=== PATIENT | female | born 1990 | race Caucasian/White ===

== ENCOUNTER 2017-12-31 13:55 | Emergency (ER) | payer OTHER, BC ==
[~2017-12-31] VITALS: Ht 167.6 cm; Wt 99.8 kg
[~2017-12-31 13:55] MED LIST: AMOXICILLIN500 M2 PO; ANTIVERT/2525 MG PO; AUGMENTIN 875875 MG PO; BACTRIM DS 8001 TA1 PO; BENTYL10 MG PO; CETIRIZINE10 MG PO; CIPRODEX 0.3%-7.5 ML OT; CIPROFLOXACIN500 MG PO; CLARITIN10 MG PO; DIFLUCAN150 MG PO; EPIPEN 2-PAK1 MG/ML MR; FLAGYL250 MG PO; FLEXERIL5 MG PO; FLONASE0.05 MG/AC NS; HYDRODIURIL25 MG PO; KEFTAB500 MG PO; LOMOTIL 0.025 M1 TA1 PO; MEDROL DOSEPAK4 MG PO; METFORMIN500 MG PO; MOTRIN800 MG PO; NEURONTIN600 MG PO; NKHM; NO DAILY MEDS; NORCO 5-325 TA1 EACH PO; NORFLEX100 MG PO; PROVENTIL0.09 MG/AC IH; PYRIDIUM200 MG PO; SYNTHROID0.075 MG PO; SYNTHROID300 MCG PO; TOPIRAMATE100 M1 PO; VENTOLIN H0.09 MG/AC INH; VERAPAMIL HCL80 MG PO; VICODIN ES 7501 TAB PO; VISTARIL50 MG PO; VITAMIN B121000 MC1 PO; VITAMIN D32000 UNIT PO; ZITHROMAX Z PA250 MG PO; ZITHROMAX250 MG PO; ZOFRAN ODT4 MG SL; ZYRTEC10 M2 PO; [UNRECOGNIZED DRUG - MIXTURE] PO
[2017-12-31] MEDS ORDERED: CYCLOBENZAPRINE5 M3 PO ×2 (16:22→16:44)
[2017-12-31] MEDS ORDERED: Motrin,Rufen800 MG PO (16:22)
== END 2017-12-31 16:38 | disposition home or self-care (01) ==
LOC: ED 13:55
DX: S16.1XXA Strain of muscle, fascia and tendon at neck level, initial encounter (principal); S80.02XA Contusion of left knee, initial encounter; S09.90XA Unspecified injury of head, initial encounter; Z79.899 Other long term (current) drug therapy; Z91.040 Latex allergy status; Z88.8 Allergy status to other drugs, medicaments and biological substances; V49.88XA Car occupant (driver) (passenger) injured in other specified transport accidents, initial encounter; Y93.89 Activity, other specified; Y92.413 State road as the place of occurrence of the external cause; Y99.9 Unspecified external cause status

== ENCOUNTER 2018-03-11 11:20 | Emergency (ER) | payer BC ==
[~2018-03-11] VITALS: Ht 170.1 cm; Wt 99.8 kg
[~2018-03-11 11:20] MED LIST changes: +CYCLOBENZAPRINE5 M3 PO; +Motrin,Rufen800 MG PO
[2018-03-11 11:43] LABS: BILIRUBIN NEGATIVE (NEGATIVE); BLOOD NEGATIVE (NEGATIVE); CLARITY CLOUDY (CLEAR); COLOR YELLOW (YELLOW); GLUCOSE NEGATIVE (NEGATIVE); KETONE NEGATIVE (NEGATIVE); LEUKO ESTERASE NEGATIVE (NEGATIVE); NITRITE NEGATIVE (NEGATIVE); PH 7.5 (5.0-9.0)
[2018-03-11 11:44] LABS: BASO % 0.5 % (0.0-1.0); EOS # 0.3 10*3/uL (0.0-0.4); EOS % 4.6 % (1.0-4.0); HEMATOCRIT 39.7 % (37.0-47.0); HEMOGLOBIN 13.6 g/dl (12.0-16.0); LYMPH # 1.7 10*3/uL (1.3-4.4); LYMPH % 26.5 % (27.0-41.0); MEAN CELL VOLUME 94.1 fl (81.0-99.0); MEAN CORPUSCULAR HGB 32.2 pg (27.0-31.0); MEAN CORPUSCULAR HGB CONC 34.3 g/dl (33.0-37.0); MEAN PLATELET VOLUME 10.2 fl (9.6-12.3); MONO # 0.4 10*3/uL (0.1-1.0); MONO % 6.8 % (3.0-9.0); NEUT % 61.4 % (47.0-73.0); PLATELET COUNT AUTOMATED 221 10*3/uL (130-400); RED BLOOD COUNT 4.22 10*6/uL (4.10-5.10); RED CELL DISTRI WIDTH 12.5 % (0-14.5); WHITE BLOOD COUNT 6.5 10*3/uL (4.8-10.8)
[2018-03-11 11:58] LABS: ALBUMIN 3.6 gm/dl (3.1-4.5); ALKALINE PHOSPHATASE 70 U/L (45-117); BUN 9 mg/dl (7-24); CHLORIDE 107 mmol/L (98-107); CREATININE 0.66 mg/dL (0.55-1.02); POTASSIUM 3.9 mmol/L (3.5-5.1); SGOT/AST 17 IU/L (3-35); SGPT/ALT 26 U/L (12-78); SODIUM 140 mmol/L (136-145); TOTAL PROTEIN 7.2 gm/dL (6.4-8.2)
[2018-03-11 12:02] LABS: BACTERIA 3+; EPITHELIAL CELLS 21-30
[2018-03-11] MEDS ORDERED: SYNTHROID300 MCG PO (15:40)
== END 2018-03-11 15:44 | disposition home or self-care (01) ==
LOC: ED 11:20
PROVIDERS: Nurse Practitioner
DX: E03.9 Hypothyroidism, unspecified (principal); R07.9 Chest pain, unspecified; Z91.040 Latex allergy status; Z88.8 Allergy status to other drugs, medicaments and biological substances; Z79.899 Other long term (current) drug therapy

== ENCOUNTER → 2018-12-03 | Outpatient (CLI) | payer BC | END | disposition home or self-care (01) | LOC: US 10:09 | DX: Z34.81 Encounter for supervision of other normal pregnancy, first trimester (principal); Z3A.10 10 weeks gestation of pregnancy ==

== ENCOUNTER 2019-08-10 20:47 | Emergency (ER) | payer OTHER ==
[~2019-08-10] VITALS: Ht 165.1 cm; Wt 108.9 kg
== END 2019-08-10 22:33 | disposition home or self-care (01) ==
LOC: ED 20:47
DX: G43.909 Migraine, unspecified, not intractable, without status migrainosus (principal); E03.9 Hypothyroidism, unspecified; G62.9 Polyneuropathy, unspecified; Z91.040 Latex allergy status; Z88.8 Allergy status to other drugs, medicaments and biological substances; Z79.899 Other long term (current) drug therapy; Z90.49 Acquired absence of other specified parts of digestive tract

== ENCOUNTER 2021-05-16 15:15 | Emergency (ER) | payer OTHER ==
[2021-05-16 16:07] LABS: BASO % 0.1 % (0.0-1.0); EOS # 0.1 10*3/uL (0.0-0.4); EOS % 0.7 % (1.0-4.0); HEMATOCRIT 41.3 % (37.0-47.0); LYMPH # 1.3 10*3/uL (1.3-4.4); LYMPH % 13.7 % (27.0-41.0); MEAN CELL VOLUME 97.4 fl (81.0-99.0); MEAN CORPUSCULAR HGB 32.5 pg (27.0-31.0); MEAN CORPUSCULAR HGB CONC 33.4 g/dl (33.0-37.0); MEAN PLATELET VOLUME 9.7 fl (9.6-12.3); MONO # 0.5 10*3/uL (0.1-1.0); MONO % 5.3 % (3.0-9.0); NEUT # 7.7 10*3/uL (2.3-7.9); PLATELET COUNT AUTOMATED 265 10*3/uL (130-400); RED BLOOD COUNT 4.24 10*6/uL (4.10-5.10); RED CELL DISTRI WIDTH 12.9 % (0-14.5); WHITE BLOOD COUNT 9.6 10*3/uL (4.8-10.8)
[2021-05-16 16:32] LABS: ALBUMIN 3.8 gm/dl (3.1-4.5); BUN 16 mg/dl (7-24); CHLORIDE 106 mmol/L (98-107); CREATININE 1.11 mg/dL (0.55-1.02); SGOT/AST 28 IU/L (3-35); SGPT/ALT 46 U/L (12-78); SODIUM 137 mmol/L (136-145)
[2021-05-16 16:35] LABS: ALKALINE PHOSPHATASE 90 U/L (45-117)
[2021-05-16 16:37] LABS: TROPONIN I < 0.015 ng/ml (<0.045)
== END 2021-05-16 20:20 | disposition home or self-care (01) ==
LOC: ED 15:15
PROVIDERS: Physician Assistant
DX: R00.2 Palpitations (principal); Z20.822 Contact with and (suspected) exposure to COVID-19; R07.89 Other chest pain; R06.02 Shortness of breath; Z91.040 Latex allergy status; Z88.8 Allergy status to other drugs, medicaments and biological substances; Z79.899 Other long term (current) drug therapy; Z90.49 Acquired absence of other specified parts of digestive tract

== ENCOUNTER 2022-08-03 13:48 | Emergency (ER) | payer OTHER ==
[~2022-08-03] VITALS: Ht 165.1 cm; Wt 114.3 kg
[2022-08-03 14:56] LABS: HEMATOCRIT 43.9 % (37.0-47.0); MEAN CELL VOLUME 93.8 fl (81.0-99.0); MEAN CORPUSCULAR HGB 32.3 pg (27.0-31.0); MEAN CORPUSCULAR HGB CONC 34.4 g/dl (33.0-37.0); MEAN PLATELET VOLUME 10.1 fl (9.6-12.3); PLATELET COUNT AUTOMATED 275 10*3/uL (130-400); RED BLOOD COUNT 4.68 10*6/uL (4.10-5.10); WHITE BLOOD COUNT 7.2 10*3/uL (4.8-10.8)
[2022-08-03 14:58] LABS: MANUAL DIFF REFLEX YES
[2022-08-03 15:16] LABS: ALKALINE PHOSPHATASE 75 U/L (45-117); BUN 7 mg/dl (7-24); CHLORIDE 110 mmol/L (98-107); CREATININE 0.84 mg/dL (0.55-1.02); POTASSIUM 3.6 mmol/L (3.5-5.1); SGOT/AST 18 IU/L (3-35); SGPT/ALT 42 U/L (12-78); SODIUM 141 mmol/L (136-145)
[2022-08-03 15:19] LABS: BILIRUBIN Negative (Negative); BLOOD Negative (Negative); CLARITY Clear (Clear); COLOR Yellow (Yellow); GLUCOSE Negative (Negative); KETONE Negative (Negative); LEUKO ESTERASE Negative (Negative); NITRITE Negative (Negative); PH 7.5 (4.5-8.0); UROBILINOGEN 0.2 E.U./dl (0.0-1.0)
[2022-08-03 15:26] LABS: PLATELET SUFFICIENCY NORMAL (NORMAL); TOTAL CELLS COUNTED 100 #CELLS
[2022-08-03 15:35] LABS: BACTERIA 1+; EPITHELIAL CELLS 21-30; WBC 0-2 wbc/hpf (0-5)
== END 2022-08-03 16:53 | disposition home or self-care (01) ==
LOC: ED 13:48
PROVIDERS: Nurse Practitioner Family
DX: R55 Syncope and collapse (principal); R42 Dizziness and giddiness; Z91.040 Latex allergy status; Z88.8 Allergy status to other drugs, medicaments and biological substances; Z79.899 Other long term (current) drug therapy; Z90.49 Acquired absence of other specified parts of digestive tract

== ENCOUNTER 2022-09-29 04:29 | Emergency (ER) | payer OTHER ==
[~2022-09-29] VITALS: Ht 167.6 cm; Wt 116.3 kg
[2022-09-29] MEDS ORDERED: TIROSINT175 MCG PO (04:42)
[2022-09-29] MEDS ORDERED: QUETIAPINE FUMA50 M1 PO (04:43)
[2022-09-29] MEDS ORDERED: PHARMASSURE FO0.4 MG PO (04:43)
[2022-09-29] MEDS ORDERED: MIDODRINE HCL5 M1 PO (04:44)
[2022-09-29 05:29] LABS: ALKALINE PHOSPHATASE 50 U/L (46-116); BUN 6 mg/dl (9-23); CHLORIDE 106 mmol/L (98-107); CPK 61 U/L (34-171); MYOGLOBIN 31.5 ng/ml (13-71); POTASSIUM 3.4 mmol/L (3.4-5.1); SGPT/ALT 25 U/L (10-49); TOTAL PROTEIN 6.8 gm/dL (6.0-8.0)
[2022-09-29 05:59] LABS: BASO % 0.2 % (0.0-1.0); EOS # 0.1 10*3/uL (0.0-0.4); EOS % 0.9 % (1.0-4.0); HEMATOCRIT 39.4 % (37.0-47.0); LYMPH # 1.6 10*3/uL (1.3-4.4); LYMPH % 20.2 % (27.0-41.0); MEAN CELL VOLUME 92.9 fl (81.0-99.0); MEAN CORPUSCULAR HGB 32.3 pg (27.0-31.0); MEAN CORPUSCULAR HGB CONC 34.8 g/dl (33.0-37.0); MEAN PLATELET VOLUME 10.8 fl (9.6-12.3); MONO # 0.5 10*3/uL (0.1-1.0); MONO % 6.6 % (3.0-9.0); NEUT # 5.7 10*3/uL (2.3-7.9); NEUT % 71.2 % (47.0-73.0); PLATELET COUNT AUTOMATED 211 10*3/uL (130-400); RED BLOOD COUNT 4.24 10*6/uL (4.10-5.10); RED CELL DISTRI WIDTH 12.5 % (0-14.5)
[2022-09-29 06:08] LABS: ACT PARTIAL THROMBO TIME 24.8 SECONDS (20.0-32.1)
== END 2022-09-29 12:15 | disposition short-term general hospital (02) ==
LOC: ED 04:29
PROVIDERS: Family Medicine
DX: O26.891 Other specified pregnancy related conditions, first trimester (principal); R42 Dizziness and giddiness; R51.9 Headache, unspecified; Z3A.09 9 weeks gestation of pregnancy; Z91.040 Latex allergy status; Z88.8 Allergy status to other drugs, medicaments and biological substances; Z79.899 Other long term (current) drug therapy; Z90.49 Acquired absence of other specified parts of digestive tract

== ENCOUNTER 2024-04-25 21:17 | Emergency (ER) | payer OTHER ==
[~2024-04-25] VITALS: Ht 167.6 cm; Wt 113.4 kg
[~2024-04-25 21:17] MED LIST changes: +MIDODRINE HCL5 M1 PO; +PHARMASSURE FO0.4 MG PO; +QUETIAPINE FUMA50 M1 PO; +TIROSINT175 MCG PO
[2024-04-25] MEDS ORDERED: FAMOTIDINE 50 ML IV ONE (21:30)
[2024-04-25] MEDS ORDERED: methylPREDNISolone sod succ 125 MG VIAL IV ONE (21:30)
[2024-04-25] MEDS ORDERED: SODIUM CHLORIDE 0.9% 1,000 ML IV ONE (21:30)
== END 2024-04-25 22:50 | disposition home or self-care (01) ==
LOC: ED 21:17
DX: Z91.040 Latex allergy status (principal); Z88.8 Allergy status to other drugs, medicaments and biological substances; Z79.899 Other long term (current) drug therapy; Z90.49 Acquired absence of other specified parts of digestive tract

== ENCOUNTER 2024-05-12 22:12 | Emergency (ER) | payer OTHER ==
[~2024-05-12] VITALS: Ht 167.6 cm; Wt 113.4 kg
[2024-05-12] MEDS ORDERED: ARMOUR THYROID180 MG PO (22:27)
[2024-05-12] MEDS ORDERED: TRILEPTAL300 MG PO (22:27)
[2024-05-12] MEDS ORDERED: JARDIANCE10 MG PO (22:28)
[2024-05-12] MEDS ORDERED: ZANAFLEX4 M2 PO (22:28)
== END 2024-05-13 00:44 | disposition home or self-care (01) ==
LOC: ED 22:12
DX: S96.911A Strain of unspecified muscle and tendon at ankle and foot level, right foot, initial encounter (principal); G43.909 Migraine, unspecified, not intractable, without status migrainosus; E03.9 Hypothyroidism, unspecified; Z91.040 Latex allergy status; Z88.8 Allergy status to other drugs, medicaments and biological substances; Z79.899 Other long term (current) drug therapy; Z90.49 Acquired absence of other specified parts of digestive tract; W18.09XA Striking against other object with subsequent fall, initial encounter; Y93.89 Activity, other specified; Y92.89 Other specified places as the place of occurrence of the external cause; Y99.8 Other external cause status

== ENCOUNTER 2024-06-27 16:22 | Emergency (ER) | payer OTHER ==
[~2024-06-27] VITALS: Ht 165.1 cm; Wt 117.9 kg
[~2024-06-27 16:22] MED LIST changes: +ARMOUR THYROID180 MG PO; +JARDIANCE10 MG PO; +TRILEPTAL300 MG PO; +ZANAFLEX4 M2 PO
[2024-06-27] MEDS ORDERED: Ondansetron Hydrochloride 4 MG TAB PO ONE (16:45)
[2024-06-27] MEDS ORDERED: LORazepam 0.5 MG TAB PO ONE (16:45)
[2024-06-27 17:06] LABS: BASO % 0.2 % (0.0-1.0); EOS # 0.1 10*3/uL (0.0-0.4); EOS % 1.3 % (1.0-4.0); HEMATOCRIT 38.5 % (37.0-47.0); LYMPH # 1.1 10*3/uL (1.3-4.4); LYMPH % 11.7 % (27.0-41.0); MEAN CELL VOLUME 93.7 fl (81.0-99.0); MEAN CORPUSCULAR HGB 31.4 pg (27.0-31.0); MEAN CORPUSCULAR HGB CONC 33.5 g/dl (33.0-37.0); MEAN PLATELET VOLUME 9.8 fl (9.6-12.3); MONO # 0.5 10*3/uL (0.1-1.0); MONO % 5.9 % (3.0-9.0); NEUT # 7.4 10*3/uL (2.3-7.9); NEUT % 80.7 % (47.0-73.0); PLATELET COUNT AUTOMATED 227 10*3/uL (130-400); RED BLOOD COUNT 4.11 10*6/uL (4.10-5.10); RED CELL DISTRI WIDTH 12.8 % (0-14.5); WHITE BLOOD COUNT 9.2 10*3/uL (4.8-10.8)
[2024-06-27 17:32] LABS: BUN 11 mg/dl (9-23); CHLORIDE 108 mmol/L (98-107); POTASSIUM 3.8 mmol/L (3.4-5.1)
== END 2024-06-27 18:02 | disposition home or self-care (01) ==
LOC: ED 16:22
PROVIDERS: Physician Assistant Medical
DX: E03.9 Hypothyroidism, unspecified (principal); R42 Dizziness and giddiness; R51.9 Headache, unspecified; R11.0 Nausea; F31.9 Bipolar disorder, unspecified; F41.9 Anxiety disorder, unspecified; Z91.040 Latex allergy status; Z88.8 Allergy status to other drugs, medicaments and biological substances; Z90.49 Acquired absence of other specified parts of digestive tract

== ENCOUNTER 2024-11-06 20:02 | Emergency (ER) | payer OTHER ==
[~2024-11-06] VITALS: Ht 167.6 cm; Wt 117.9 kg
[2024-11-06] MEDS ORDERED: PREDNISONE50 MG PO (20:34)
[2024-11-06] MEDS ORDERED: CYCLOBENZAPRINE5 M3 PO (20:34)
[2024-11-06] MEDS ORDERED: Ketorolac Tromethamine 15 MG/ML VIAL IM ONE (20:35)
[2024-11-06] MEDS ORDERED: methylPREDNISolone sod succ 125 MG VIAL IM ONE (20:35)
== END 2024-11-06 20:59 | disposition home or self-care (01) ==
LOC: ED 20:02
DX: M54.41 Lumbago with sciatica, right side (principal); Z91.040 Latex allergy status; Z88.8 Allergy status to other drugs, medicaments and biological substances; Z79.899 Other long term (current) drug therapy; Z90.49 Acquired absence of other specified parts of digestive tract

== ENCOUNTER 2025-02-17 13:13 | Emergency (ER) | payer OTHER ==
[~2025-02-17] VITALS: Ht 167.6 cm; Wt 117.9 kg
[~2025-02-17 13:13] MED LIST changes: +PREDNISONE50 MG PO
[2025-02-17] MEDS ORDERED: PREDNISONE20 M1 PO (13:44)
[2025-02-17] MEDS ORDERED: methylPREDNISolone sod succ 125 MG VIAL IM ONE (13:45)
== END 2025-02-17 14:10 | disposition home or self-care (01) ==
LOC: ED 13:13
DX: T63.441A Toxic effect of venom of bees, accidental (unintentional), initial encounter (principal); E03.9 Hypothyroidism, unspecified; Z79.899 Other long term (current) drug therapy; Z88.8 Allergy status to other drugs, medicaments and biological substances; Z91.040 Latex allergy status; Z98.890 Other specified postprocedural states; Y92.89 Other specified places as the place of occurrence of the external cause

== ENCOUNTER → 2025-03-25 | Outpatient (CLI) | payer OTHER ==
[~2025-03-25] MED LIST changes: +PREDNISONE20 M1 PO
[2025-03-25 15:20] LABS: FREE T4 0.49 ng/dl (0.89-1.76)
== END | disposition home or self-care (01) ==
LOC: LAB 14:12
PROVIDERS: Student in an Organized Health Care Education/Training Program; ATTEND Internal Medicine Endocrinology, Diabetes & Metabolism
DX: E06.3 Autoimmune thyroiditis (principal)

== ENCOUNTER 2025-04-19 10:08 | Inpatient (IN) | payer OTHER ==
[~2025-04-19] VITALS: Ht 167.6 cm; Wt 115.7 kg
[2025-04-19 10:16] VITALS: BP 106/71
[2025-04-19] MEDS ORDERED: IOHEXOL 300 MG/ML 100 ML VIAL IV ONE (10:45)
[2025-04-19 10:49] LABS: BASO # 0.0 10*3/uL (0.0-0.1); BASO % 0.4 % (0.0-1.0); EOS # 0.2 10*3/uL (0.0-0.4); EOS % 4.0 % (1.0-4.0); MEAN CELL VOLUME 94.1 fl (81.0-99.0); MEAN CORPUSCULAR HGB 32.3 pg (27.0-31.0); MEAN PLATELET VOLUME 10.0 fl (9.6-12.3); MONO # 0.4 10*3/uL (0.1-1.0); MONO % 8.4 % (3.0-9.0); NEUT # 2.6 10*3/uL (2.3-7.9); NEUT % 57.3 % (47.0-73.0); NUCLEATED RED BLOOD CELL 0.0 % (0.0-0.0); NUCLEATED RED BLOOD CELL 0.0 10*3/uL (0.0-0.0); PLATELET COUNT AUTOMATED 216 10*3/uL (130-400); RED CELL DISTRI WIDTH 12.6 % (0-14.5)
[2025-04-19] MEDS ORDERED: IOHEXOL 300 MG/ML 100 ML VIAL ONE (11:00)
[2025-04-19 11:15] LABS: BUN 12 mg/dl (9-23); CPK 451 U/L (34-171); FREE T4 0.47 ng/dl (0.89-1.76); SGPT/ALT 37 U/L (5-49)
[2025-04-19 11:35] LABS: BILIRUBIN Negative (Negative); BLOOD Negative (Negative); CLARITY Clear (Clear); COLOR Yellow (Yellow); KETONE Trace (Negative); LEUKO ESTERASE Negative (Negative); NITRITE Positive (Negative); PH 5.5 (4.5-8.0); SPECIFIC GRAVITY >= 1.030 (1.001-1.030); UROBILINOGEN 1.0 E.U./dl (0.0-1.0)
[2025-04-19 11:45] LABS: BACTERIA 4+; MUCOUS 3+
[2025-04-19] MEDS ORDERED: Levothyroxine Sodium 100 MCG IV ONE (13:10)
[2025-04-19] MEDS ORDERED: CYCLOBENZAPRINE10 MG PO (14:57)
[2025-04-19] MEDS ORDERED: LEVOTHYROXINE50 MCG PO (14:58)
[2025-04-19] MEDS ORDERED: Ondansetron Hydrochloride 4 MG/2 ML VIAL IV PRN (15:10)
[2025-04-19] MEDS ORDERED: RIZATRIPTAN10 MG PO (15:39)
[2025-04-19] MEDS ORDERED: AJOVY AUTO225 MG/1.5 SQ (15:43)
[2025-04-19] MEDS ORDERED: SODIUM CHLORIDE 0.9% 1,000 ML IV SCH (16:00)
[2025-04-19] MEDS ORDERED: ACETAMINOPHEN 325 MG TAB PO PRN (16:00)
[2025-04-19] MEDS ORDERED: Cyclobenzaprine Hydrochlorid 10 MG TAB PO PRN (17:15)
[2025-04-19] MEDS ORDERED: ASPIRIN 325 MG ENTERIC COATED PO ONE (19:55)
[2025-04-19 20:00] VITALS: BP 94/50
[2025-04-20] VITALS: BP 100/60
[2025-04-20] MEDS ORDERED: Regadenoson 0.4 MG/5 ML SYR IV ONE (05:21)
[2025-04-20 06:23] LABS: BASO # 0.0 10*3/uL (0.0-0.1); BASO % 0.5 % (0.0-1.0); EOS # 0.2 10*3/uL (0.0-0.4); EOS % 3.9 % (1.0-4.0); MEAN CORPUSCULAR HGB 31.7 pg (27.0-31.0); MEAN PLATELET VOLUME 10.2 fl (9.6-12.3); MONO # 0.4 10*3/uL (0.1-1.0); MONO % 7.1 % (3.0-9.0); NEUT # 3.0 10*3/uL (2.3-7.9); NEUT % 52.7 % (47.0-73.0); NUCLEATED RED BLOOD CELL 0.0 % (0.0-0.0); NUCLEATED RED BLOOD CELL 0.0 10*3/uL (0.0-0.0); PLATELET COUNT AUTOMATED 205 10*3/uL (130-400); RED CELL DISTRI WIDTH 12.7 % (0-14.5)
[2025-04-20 06:54] LABS: MEAN CELL VOLUME 97.5 fl (81.0-99.0)
[2025-04-20 07:06] LABS: BUN 13 mg/dl (9-23); LDL CHOLESTEROL 83 mg/dL (9-159)
[2025-04-20 07:24] LABS: VITAMIN D, 25-HYDROXY 36.8 ng/mL (30-100)
[2025-04-20] MEDS ORDERED: CYANOCOBALAMIN 1,000 MCG/ML VIAL IM ONE (08:00)
[2025-04-20] MEDS ORDERED: Water, Sterile 10 ML VIAL ONE (11:37)
[2025-04-20 12:00] VITALS: BP 125/50
[2025-04-20 14:34] VITALS: BP 116/60
[2025-04-20 16:00] VITALS: BP 116/70
[2025-04-20 20:00] VITALS: BP 118/78
[2025-04-21] VITALS: BP 100/52; BP 93/40
[2025-04-21 06:01] LABS: BASO # 0.0 10*3/uL (0.0-0.1); BASO % 0.1 % (0.0-1.0); EOS # 0.1 10*3/uL (0.0-0.4); EOS % 0.8 % (1.0-4.0); MEAN CELL VOLUME 97.4 fl (81.0-99.0); MEAN CORPUSCULAR HGB 32.2 pg (27.0-31.0); MEAN PLATELET VOLUME 10.7 fl (9.6-12.3); MONO # 0.5 10*3/uL (0.1-1.0); MONO % 6.0 % (3.0-9.0); NEUT # 6.0 10*3/uL (2.3-7.9); NEUT % 71.4 % (47.0-73.0); NUCLEATED RED BLOOD CELL 0.0 % (0.0-0.0); NUCLEATED RED BLOOD CELL 0.0 10*3/uL (0.0-0.0); PLATELET COUNT AUTOMATED 199 10*3/uL (130-400); RED CELL DISTRI WIDTH 12.5 % (0-14.5)
[2025-04-21 06:54] LABS: BUN 9 mg/dl (9-23)
[2025-04-21 08:26] VITALS: BP 113/55
[2025-04-21] MEDS ORDERED: ASPIRIN ENTERIC COATED 81 MG TAB PO SCH (10:00)
[2025-04-21] MEDS ORDERED: TIROSINT S PO (11:03)
[2025-04-21] MEDS ORDERED: PREDNISONE10 MG PO (11:03)
[2025-04-21] MEDS ORDERED: Motrin,Rufen800 MG PO (11:03)
[2025-04-21] MEDS ORDERED: MACROBID100 M1 PO (11:03)
[2025-04-21] MEDS ORDERED: Water, Sterile 10 ML VIAL ONE (11:30)
== END 2025-04-21 12:40 | disposition home or self-care (01) | DRG 427 ==
LOC: ED 10:08 → EDHOLD 14:22 → 5E 14:22
PROVIDERS: Emergency Medicine; ADMIT Internal Medicine; ATTEND Internal Medicine
PROC: 4A02XM4 Measurement of Cardiac Total Activity, External Approach (ICD-10-PCS; principal; 2025-04-19)
PROC: 3E033HZ Introduction of Radioactive Substance into Peripheral Vein, Percutaneous Approach (ICD-10-PCS; 2025-04-19)
DX: E06.3 Autoimmune thyroiditis (principal); M94.0 Chondrocostal junction syndrome [Tietze]; G43.909 Migraine, unspecified, not intractable, without status migrainosus; N30.00 Acute cystitis without hematuria; R73.9 Hyperglycemia, unspecified; Z91.040 Latex allergy status; Z88.8 Allergy status to other drugs, medicaments and biological substances; Z91.09 Other allergy status, other than to drugs and biological substances; Z79.899 Other long term (current) drug therapy; Z79.01 Long term (current) use of anticoagulants; Z79.2 Long term (current) use of antibiotics; Z82.49 Family history of ischemic heart disease and other diseases of the circulatory system; Z80.8 Family history of malignant neoplasm of other organs or systems; Z83.3 Family history of diabetes mellitus; Z98.84 Bariatric surgery status; Z98.891 History of uterine scar from previous surgery; Z90.49 Acquired absence of other specified parts of digestive tract; Z90.710 Acquired absence of both cervix and uterus; Z80.3 Family history of malignant neoplasm of breast; Z78.9 Other specified health status

== ENCOUNTER 2025-05-03 10:40 | Emergency (ER) | payer OTHER ==
[~2025-05-03] VITALS: Ht 167.6 cm; Wt 113.4 kg
[~2025-05-03 10:40] MED LIST changes: +AJOVY AUTO225 MG/1.5 SQ; +CYCLOBENZAPRINE10 MG PO; +LEVOTHYROXINE50 MCG PO; +MACROBID100 M1 PO; +PREDNISONE10 MG PO; +RIZATRIPTAN10 MG PO; +TIROSINT S PO
[2025-05-03] MEDS ORDERED: MELOXICAM15 MG PO (12:31)
== END 2025-05-03 12:34 | disposition home or self-care (01) ==
LOC: ED 10:40
DX: M79.632 Pain in left forearm (principal); M25.512 Pain in left shoulder; M79.602 Pain in left arm; M25.561 Pain in right knee; R10.9 Unspecified abdominal pain; R51.9 Headache, unspecified; R11.0 Nausea; M54.50 Low back pain, unspecified; M54.2 Cervicalgia; M25.562 Pain in left knee; E03.9 Hypothyroidism, unspecified; Z90.710 Acquired absence of both cervix and uterus; Z98.84 Bariatric surgery status; Z98.890 Other specified postprocedural states; Z88.8 Allergy status to other drugs, medicaments and biological substances; Z91.040 Latex allergy status; V89.2XXA Person injured in unspecified motor-vehicle accident, traffic, initial encounter; Y93.89 Activity, other specified; Y92.410 Unspecified street and highway as the place of occurrence of the external cause; Y99.8 Other external cause status

== ENCOUNTER → 2025-06-28 | Outpatient (CLI) | payer OTHER ==
[~2025-06-28] MED LIST changes: +'CLONIDINE0.1 MG PO; +DULOXETINE HCL20 MG PO; +HYDROXYZINE HCL25 MG PO; +MELOXICAM15 MG PO; +MITIGARE0.6 MG PO; +OXCARBAZEPINE300 M1 PO; +PROPRANOLOL ER80 MG PO; +Synthroid,Lev100 MCG PO; +TOPIRAMATE25 M3 PO; +VRAYLAR3 MG PO
[2025-06-28 13:30] LABS: BASO # 0.0 10*3/uL (0.0-0.1); BASO % 0.4 % (0.0-1.0); EOS # 0.3 10*3/uL (0.0-0.4); EOS % 5.4 % (1.0-4.0); MEAN CELL VOLUME 89.9 fl (81.0-99.0); MEAN CORPUSCULAR HGB 31.7 pg (27.0-31.0); MEAN PLATELET VOLUME 10.5 fl (9.6-12.3); MONO # 0.4 10*3/uL (0.1-1.0); MONO % 6.9 % (3.0-9.0); NEUT # 3.2 10*3/uL (2.3-7.9); NEUT % 59.4 % (47.0-73.0); NUCLEATED RED BLOOD CELL 0.0 % (0.0-0.0); NUCLEATED RED BLOOD CELL 0.0 10*3/uL (0.0-0.0); PLATELET COUNT AUTOMATED 229 10*3/uL (130-400); RED CELL DISTRI WIDTH 11.6 % (0-14.5)
[2025-06-28 14:08] LABS: BUN 14 mg/dl (9-23); FREE T4 0.78 ng/dl (0.89-1.76); LDL CHOLESTEROL 81 mg/dL (9-159); SGPT/ALT 36 U/L (5-49); VITAMIN D, 25-HYDROXY 37.5 ng/mL (30-100)
== END | disposition home or self-care (01) ==
LOC: LAB 12:47
PROVIDERS: ATTEND Internal Medicine
DX: E11.9 Type 2 diabetes mellitus without complications (principal); I95.9 Hypotension, unspecified; E07.9 Disorder of thyroid, unspecified; R53.83 Other fatigue; E53.9 Vitamin B deficiency, unspecified; E55.9 Vitamin D deficiency, unspecified

== ENCOUNTER 2025-07-02 13:15 | Emergency (ER) | payer OTHER ==
[~2025-07-02] VITALS: Ht 167.6 cm; Wt 115.7 kg
[2025-07-02] MEDS ORDERED: LIDOCAINE 1 EA PATCH T ONE (14:15)
[2025-07-02] MEDS ORDERED: Cyclobenzaprine Hydrochlorid 10 MG TAB PO ONE (14:15)
[2025-07-02] MEDS ORDERED: ASPERCREME LID1 EACH T (15:57)
== END 2025-07-02 14:13 | disposition home or self-care (01) ==
LOC: ED 13:15
DX: M54.50 Low back pain, unspecified (principal); G89.29 Other chronic pain; Z91.040 Latex allergy status; Z88.8 Allergy status to other drugs, medicaments and biological substances; Z79.899 Other long term (current) drug therapy; Z90.49 Acquired absence of other specified parts of digestive tract; Z98.890 Other specified postprocedural states; Z90.710 Acquired absence of both cervix and uterus

== ENCOUNTER → 2025-08-25 | Outpatient (CLI) | payer OTHER ==
[~2025-08-25] MED LIST changes: +ASPERCREME LID1 EACH T
[2025-08-25 12:59] LABS: FREE T4 2.57 ng/dl (0.89-1.76)
== END | disposition home or self-care (01) ==
LOC: LAB 11:37
PROVIDERS: ATTEND Internal Medicine
DX: E03.9 Hypothyroidism, unspecified (principal); Z13.0 Encounter for screening for diseases of the blood and blood-forming organs and certain disorders involving the immune mechanism; Z13.1 Encounter for screening for diabetes mellitus; Z13.21 Encounter for screening for nutritional disorder; Z13.220 Encounter for screening for lipoid disorders; Z13.228 Encounter for screening for other metabolic disorders; Z13.29 Encounter for screening for other suspected endocrine disorder; Z13.6 Encounter for screening for cardiovascular disorders; Z13.89 Encounter for screening for other disorder; Z13.9 Encounter for screening, unspecified

== ENCOUNTER → 2025-09-01 | Outpatient (CLI) | payer OTHER | END | disposition home or self-care (01) | LOC: RAD 12:29 | PROVIDERS: ATTEND Internal Medicine | DX: M25.551 Pain in right hip (principal); M25.552 Pain in left hip; M54.50 Low back pain, unspecified ==